=== PATIENT | female | born 1990 | race Caucasian/White ===

== ENCOUNTER 2017-10-23 21:10 | Emergency (ER) | payer OTHER ==
[2017-10-23] MEDS: ACETAMINOPHEN 325 MG TAB PO (22:30)
[2017-10-23] MEDS: METHOCARBAMOL 500 MG TAB PO (22:30)
== END 2017-10-23 23:27 | disposition home or self-care (01) ==
LOC: M ED 21:10
DX: S20.229A Contusion of unspecified back wall of thorax, initial encounter (principal); W10.9XXA Fall (on) (from) unspecified stairs and steps, initial encounter; Y92.9 Unspecified place or not applicable; Y93.9 Activity, unspecified; E11.9 Type 2 diabetes mellitus without complications; G89.29 Other chronic pain; M54.5 Low back pain; K21.9 Gastro-esophageal reflux disease without esophagitis; G43.909 Migraine, unspecified, not intractable, without status migrainosus; J45.909 Unspecified asthma, uncomplicated; Z98.84 Bariatric surgery status
CPT/HCPCS: 72110

== ENCOUNTER → 2018-04-12 | Outpatient (CLI) | payer OTHER | LOC: M RAD 17:09 | DX: M51.36 Other intervertebral disc degeneration, lumbar region (principal); M54.16 Radiculopathy, lumbar region | CPT/HCPCS: 72100 ==

== ENCOUNTER → 2018-04-12 | Outpatient (CLI) | payer OTHER | LOC: M PAIN 15:00 | DX: M96.1 Postlaminectomy syndrome, not elsewhere classified (principal); M54.16 Radiculopathy, lumbar region; G89.29 Other chronic pain; J45.909 Unspecified asthma, uncomplicated; G47.33 Obstructive sleep apnea (adult) (pediatric); G43.909 Migraine, unspecified, not intractable, without status migrainosus; M19.90 Unspecified osteoarthritis, unspecified site; G47.00 Insomnia, unspecified; K21.9 Gastro-esophageal reflux disease without esophagitis; R25.1 Tremor, unspecified; Z79.51 Long term (current) use of inhaled steroids; Z79.899 Other long term (current) drug therapy; Z88.5 Allergy status to narcotic agent; Z86.79 Personal history of other diseases of the circulatory system; Z98.84 Bariatric surgery status | CPT/HCPCS: G0463 ==

== ENCOUNTER → 2018-07-22 | Outpatient (CLI) | payer OTHER | LOC: M PAIN 13:30 | DX: M79.10 Myalgia, unspecified site (principal); M54.5 Low back pain; G89.29 Other chronic pain; J45.909 Unspecified asthma, uncomplicated; K21.9 Gastro-esophageal reflux disease without esophagitis; E53.8 Deficiency of other specified B group vitamins; Z79.899 Other long term (current) drug therapy; Z98.84 Bariatric surgery status; Z88.8 Allergy status to other drugs, medicaments and biological substances | CPT/HCPCS: G0463 ==

== ENCOUNTER → 2018-08-05 | Outpatient (CLI) | payer OTHER ==
[~2018-08-05] MED LIST: BUPIVACAINE HCL 0.25% 30 ML VIAL As Ordered; TRIAMCINOLONE ACETONIDE SUSP 40 MG/ML VIAL (J3301) As Ordered; diazePAM 5 MG TAB As Ordered; oxyCODONE 5MG TAB As Ordered
== END ==
LOC: M PAIN 11:00
DX: G89.29 Other chronic pain (principal); M79.18 Myalgia, other site; M54.6 Pain in thoracic spine; M54.5 Low back pain; J45.909 Unspecified asthma, uncomplicated; G47.33 Obstructive sleep apnea (adult) (pediatric); G43.909 Migraine, unspecified, not intractable, without status migrainosus; M81.8 Other osteoporosis without current pathological fracture; R56.9 Unspecified convulsions; K21.9 Gastro-esophageal reflux disease without esophagitis; G47.00 Insomnia, unspecified; E66.01 Morbid (severe) obesity due to excess calories; Z68.38 Body mass index [BMI] 38.0-38.9, adult; Z79.51 Long term (current) use of inhaled steroids; Z79.899 Other long term (current) drug therapy; Z88.5 Allergy status to narcotic agent; Z98.84 Bariatric surgery status; Z86.79 Personal history of other diseases of the circulatory system; Z86.2 Personal history of diseases of the blood and blood-forming organs and certain disorders involving the immune mechanism; Z86.69 Personal history of other diseases of the nervous system and sense organs
CPT/HCPCS: J3301

== ENCOUNTER → 2018-08-19 | Outpatient (CLI) | payer OTHER | LOC: M PAIN 11:30 | DX: M51.26 Other intervertebral disc displacement, lumbar region (principal); M54.17 Radiculopathy, lumbosacral region; J45.909 Unspecified asthma, uncomplicated; G47.33 Obstructive sleep apnea (adult) (pediatric); G43.909 Migraine, unspecified, not intractable, without status migrainosus; R56.9 Unspecified convulsions; K21.9 Gastro-esophageal reflux disease without esophagitis; G47.00 Insomnia, unspecified; D64.9 Anemia, unspecified; Z79.51 Long term (current) use of inhaled steroids; Z79.899 Other long term (current) drug therapy; Z88.5 Allergy status to narcotic agent; Z98.84 Bariatric surgery status | CPT/HCPCS: G0463 ==

== ENCOUNTER → 2019-01-18 | Outpatient (CLI) | payer OTHER ==
[~2019-01-18] MED LIST changes: +ALBU17IN INH; +AMIT100TA PO; +BACL10TA2 PO; +BACL1TAB9 PO; +BREO1INH INH; -BUPIVACAINE HCL 0.25% 30 ML VIAL As Ordered; +CALC600T60 PO; +DICL75TA PO; +DRIS50003 PO; +FAMO1TAB11 PO; +FERR325T3 PO; +HAIR1TAB5 PO; +HYDR50TA70 PO; +IBUP200T45 PO; +IRON65TA PO; +META400T PO; +METO25TA4 PO; +NEUR600T PO; +PRIL20CA9 PO; +QUET1TAB9 PO; +ROBA500T PO; +TIZA4CAP PO; +TRAM50TA2 PO; +TRAZ-163 PO; -TRIAMCINOLONE ACETONIDE SUSP 40 MG/ML VIAL (J3301) As Ordered; -diazePAM 5 MG TAB As Ordered; +glucosamine PO; -oxyCODONE 5MG TAB As Ordered; +vitamin b 12 SQ; +vitamin c PO
--- NOTE | 2019-01-29 00:25 | ECWPNPC ---
PATIENT NAME: LUZ MARINA PLATT : 1990 GENDER: FEMALE VISIT DATE: 01/18/2019 DISCHARGE DATE: 01/18/19 1159 VISIT LOCKED DATE TIME: PHYSICIAN: HO HARDY RESOURCE: HO HARDY REASON FOR APPOINTMENT 1. BACK HISTORY OF PRESENT ILLNESS HISTORY OF PRESENT ILLNESS: HERE FOR F/U OF CHRONIC LOW BACK PAIN.RATING PAIN VAS 8/10.DESCRIBES PAIN CONTINUOUS AND ACHING.FINDS TRAMADOL ONLY MARGINALLY EFFECTIVE.DISCUSSED MEDICATION AND TREATMENT OPTIONS. PAIN THE PATIENT DESCRIBES THE PAIN... FALL RISK SCREENING: SCREENING :NO FALLS REPORTED IN THE LAST YEAR CURRENT MEDICATIONS TAKING OMEPRAZOLE 20 MG CAPSULE DELAYED RELEASE 1 CAPSULE ORALLY ONCE A DAY TAKING OSTEO BI-FLEX REGULAR STRENGTH 250-200 MG TABLET 1 TABLET WITH A MEAL ORALLY TWICE DAILY TAKING METOPROLOL TARTRATE 25 MG TABLET 1 TABLET ORALLY DAILY TAKING ALBUTEROL SULFATE HFA 108 (90 BASE) MCG/ACT AEROSOL SOLUTION 2 PUFFS NEEDED INHALATION TAKING MULTIVITAMIN WOMEN - TABLET ORALLY TAKING VITAMIN C 500 MG TABLET 1 TABLET ORALLY ONCE A DAY TAKING HAIR SKIN NAILS - CAPSULE ORALLY TAKING CALCIUM 600 600 MG TABLET ORALLY , NOTES: TAKES 2 TAKING DRISDOL 18687 UNIT CAPSULE 1 CAPSULE ORALLY MONTHLY TAKING BREO ELLIPTA 200-25 MCG/INH AEROSOL POWDER BREATH ACTIVATED 1 PUFF INHALATION ONCE A DAY TAKING VITAMIN E 400 UNIT CAPSULE 1 CAPSULE ORALLY ONCE A DAY TAKING CYANOCOBALAMIN 1000 MCG/ML LIQUID ORALLY , NOTES: MONTHLY INJECTION TAKING FLINTSTONES COMPLETE 60 MG TABLET CHEWABLE 1 TABLET ORALLY ONCE A DAY, NOTES: 2 TABS TAKING ORPHENADRINE CITRATE ER 100 MG TABLET EXTENDED RELEASE 12 HOUR 1 TABLET AT BEDTIME ORALLY ONCE A DAY TAKING HYDROXYZINE HCL 50 MG TABLET 1 TABLET NEEDED ORALLY EVERY 6 HRS TAKING FLONASE 50 MCG/DOSE INHALER 1 SPRAY IN EACH NOSTRIL NASALLY ONCE A DAY NEEDED TAKING TRAMADOL HCL 50 MG TABLET 1-2 TAB ORALLY Q 6-8H PRN MDD6 TAKING IRON FORMULA INFUSION MONTHLY NOT-TAKING DULOXETINE HCL 30 MG CAPSULE DELAYED RELEASE PARTICLES 1 CAPSULE WITH FOOD ORALLY FOR PAIN ONCE A DAY NOT-TAKING FERROUS SULFATE 325 (65 FE) MG TABLET 1 TABLET ORALLY ONCE A DAY NOT-TAKING IRON 100 PLUS 100-250-0.025-1 MG TABLET 1 TABLET ORALLY ONCE A DAY MEDICATION LIST REVIEWED AND RECONCILED WITH THE PATIENT PAST MEDICAL HISTORY ASTHMA SAUL WITH CPAP CHRONIC MIGRAINES OSTEOPOROSIS IN R LEG HERNIATED DISC WITH NERVE ROOT IMPINGEMENT SPINAL STENOSIS SEIZURE X 3 06/2016 GERD SYNCOPE AND COLLAPSE INSOMNIA OBESITY ANEMIA TACHYCARDIA ITAMIN B12 DEFICIENCY CHRONIC PAIN BENIGN FATTY TUMORS IN LOWER LEGS LUMBAR DISC DISEASE WITH RADICULOPATHY TREMOR ALLERGIES OXYCODONE ER: ITCH - SIDE EFFECTS VICODIN: ITCH - SIDE EFFECTS SURGICAL HISTORY GALL BLADDER REMOVED DISC REMOVAL X 2 08/29/2016 GASTRIC BYPASS 03/2016 TUMOR REMOVED R LEG 11/2016 D & C 2017 FAMILY HISTORY FATHER: 31 YRS MOTHER: ALIVE 48 YRS, DIAGNOSED WITH CANCER 1 BROTHER(S) , 1 SISTER(S) . SOCIAL HISTORY GENERAL: TOBACCO USE ARE YOU A:NONSMOKER ALCOHOL SCREENING DID YOU HAVE A DRINK CONTAINING ALCOHOL IN THE PAST YEAR? YES , POINTS 0 , INTERPRETATION NEGATIVE . RECREATIONAL DRUG USE: NEVER DENIES. 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 EXERCISE: WALKS. MARITAL STATUS: SINGLE. OTHERS AT HOME: OTHER RELATIVE. PAIN CLINIC PFS, CLERGY, PUBLIC HEALTH REFERRALS HAS THE PATIENT BEEN EDUCATED REGARDING HIS/HER PLAN OF CARE?YES HAS THE PATIENT BEEN EDUCATED REGARDING PAIN, THE RISK FOR PAIN, THE IMPORTANCE OF EFFECTIVE PAIN MANAGEMENT, AND THE PAIN ASSESSMENT PROCESS?YES ADVANCE DIRECTIVE ADVANCE DIRECTIVE DISCUSSED WITH PATIENT:YES HCP MOTHER DOMINICK PLATT [phone] REVIEWED 04/12/18 1600 LASREVIEWED WITH PT 08/19/18 1208 BV. HOSPITALIZATION/MAJOR DIAGNOSTIC PROCEDURE SEIZURES 2016 SURGICAL ADMISSIONS REVIEW OF SYSTEMS REVIEWED BY: PROVIDER: HO PRUETT . CONSTITUTIONAL: ANY CHANGE IN YOUR MEDICAL CONDITION? NO . CHILLS NO . FEVER NO . INFECTION: DO YOU HAVE NEW INFECTIONS? NO . DO YOU HAVE HISTORY OF MRSA? NO . MUSCULOSKELETAL: ANY NEW PATTERNS OF PAIN OR NUMBNESS? NO . GASTROENTEROLOGY: ANY NEW CHANGE IN BOWEL CONTROL? NO . GENITOURINARY: ANY NEW CHANGE IN BLADDER CONTROL? NO . IS THERE A CHANCE YOU COULD BE ? NO . HEMATOLOGY/LYMPH: DO YOU TAKE ANY BLOOD THINNERS? (FOR EXAMPLE- COUMADIN, PLAVIX, AGGRENOX, PLATEL, PRADAXA, OR XARELTO) NO . WHEN WAS YOUR LAST DOSE? DATE: TIME: . NEUROLOGY: HAVE YOU FALLEN IN THE PAST 12 MONTHS? YES, FELL 2 WEEKS AGO FROM PAIN WEAKNESS AND LOSS OF BALANCE, PT DENIES INJURIES . ANY NEW EXTREMITY NUMBNESS OR WEAKNESS? NO . CARDIOLOGY: DO YOU HAVE A PACEMAKER OR DEFIBRILLATOR? NO . RESPIRATORY: HAVE YOU BEEN SICK IN THE PAST WEEK? YES, URI RESOLVING . FEVER NO, COLD CHILLS . FLU LIKE SYMPTOMS? NO . COUGH YES, PRODUCTIVE GREEN MUCOUS RESOLVING . INTEGUMENTARY: DO YOU HAVE ANY RASHES OR OPEN SORES? NO . ALLERGIC/IMMUNO: ARE YOU ALLERGIC TO IV DYE? NO . ANY NEW ALLERGIES? NO . PSYCHIATRIC: DO YOU HAVE THOUGHTS OF HURTING YOURSELF OR SOMEONE ELSE? NO . ARE YOU ABUSED, NEGLECTED, OR IN AN UNSAFE ENVIRONMENT? NO . ENDOCRINOLOGY: ARE YOU DIABETIC? NO . OTHER: DO YOU NEED ANY PRESCRIPTIONS? YES, TRAMADOL . IF YES, PLEASE LIST: ____ . ANY NEW PROBLEMS WITH YOUR MEDICATIONS? NO . WHEN DID YOU LAST EAT? ____ . WHEN DID YOU LAST DRINK? ____ . WHAT DID YOU LAST DRINK? ____ . NAME OF PERSON DRIVING YOU HOME? ____ . DO YOU HAVE ANY OTHER QUESTIONS OR CONCERNS NO . VITAL SIGNS WT 242 LBS, HT 65", BMI 40.27 INDEX, BP 112/67 MM HG, HR 65 /MIN, RR 16 /MIN, TEMP 97.0 F, OXYGEN SAT % 100%, NA INITIALS AW 1129, REVIEWED BY: EM. EXAMINATION GENERAL EXAMINATION: GENERAL APPEARANCE:AWAKE,ALERT ,PLEAASANT . PSYCHAFFECT NORMAL . LUNGS:LUNG ROMERO ARE CLEAR TO AUSCULTATION BILATERALLY. GOOD MOVEMENT OF AIR . HEART:S1, S2 IN A REGULAR RATE AND RHYTHM. NO SIGNIFICANT MURMURS, RUBS OR GALLOPS NOTED . ASSESSMENTS PROTRUDED LUMBAR DISC - M51.26 (PRIMARY) TREATMENT PROTRUDED LUMBAR DISC INCREASE TRAMADOL HCL TABLET, 50 MG, 1-2 TAB, ORALLY, Q6 HR PRN MDD5, 30 DAY(S), 100, REFILLS 2 NOTES: ISTOP REGISTRY REVIEWED AND DEMONSTRATES COMPLLIANCE. , RISKS AND BENEFITS OF NARCOTIC/OPIOD MEDICATIONS WERE REVIEWED WITH PATIENT - THIS INCLUDES BUT IS NOT LIMITED TO RISK OF DEPENDANCE/DEVELOPMENT OF ADDICTION, MOOD DISTURBANCE AND DEPRESSION, OSTEOPOROSIS, HORMONAL AND LABIDAL CHANGES, RESPIRATORY DEPRESSION AND . PATIENT IS ADVISED NOT TO DRIVE OR DRINK ALCOHOL WHILE ON THESE MEDICATIONS. PROCEDURE CODES FA211 ESTABILISHED PATIENT [facility] CHARGE DISPOSITION & COMMUNICATION FOLLOW UP 2 MONTHS ELECTRONICALLY SIGNED BY SEBLE CHENEY ON 01/28/2019 AT 04:31 PM EDT DISCLAIMER : THIS IS A VISIT SUMMARY EXTRACTED FROM THE [email or web address] CHART. IT IS NOT A COPY OF THE [email or web address] PROGRESS NOTE. CAROLANN
== END ==
LOC: M PAIN 11:15
PROVIDERS: ATTEND Nurse Practitioner Family
DX: M51.26 Other intervertebral disc displacement, lumbar region (principal); G89.29 Other chronic pain; J44.9 Chronic obstructive pulmonary disease, unspecified; G47.33 Obstructive sleep apnea (adult) (pediatric); G43.909 Migraine, unspecified, not intractable, without status migrainosus; R56.9 Unspecified convulsions; K21.9 Gastro-esophageal reflux disease without esophagitis; D64.9 Anemia, unspecified; E66.01 Morbid (severe) obesity due to excess calories; Z68.41 Body mass index [BMI] 40.0-44.9, adult; Z79.51 Long term (current) use of inhaled steroids; Z79.891 Long term (current) use of opiate analgesic; Z79.899 Other long term (current) drug therapy; Z88.5 Allergy status to narcotic agent; Z98.84 Bariatric surgery status; Z86.79 Personal history of other diseases of the circulatory system; Z86.69 Personal history of other diseases of the nervous system and sense organs

== ENCOUNTER → 2019-06-22 | Outpatient (CLI) | payer OTHER ==
[~2019-06-22] MED LIST changes: -QUET1TAB9 PO; +QUET200T2 PO
--- NOTE | 2019-06-23 02:52 | ECWPNPC ---
PATIENT NAME: LUZ MARINA PLATT : 1990 GENDER: FEMALE VISIT DATE: 06/22/2019 DISCHARGE DATE: 06/22/19 1131 VISIT LOCKED DATE TIME: PHYSICIAN: HO HARDY RESOURCE: HO HARDY REASON FOR APPOINTMENT 1. BACK HISTORY OF PRESENT ILLNESS HISTORY OF PRESENT ILLNESS: HERE FOR F/U OF CHRONIC LOW BACK PAIN WITH BILAT. LEG RADICULAR SYMPTOMS.RATING PAIN VAS 6- 8/10.DESCRIBES PAIN CONTINUOUS AND ACHING. HAS PLANS FOR LUMBAR SURGERY IN NEAR FUTURE.HAS HAD LUMBAR SURGERY IN 2016.FINDS TRAMADOL ONLY MARGINALLY EFFECTIVE. DENIES LOSS OF CONTROL OF BOWEL OR BLADDER.DISCUSSED MEDICATION AND TREATMENT OPTIONS. PAIN THE PATIENT DESCRIBES THE PAIN... THE PATIENT DESCRIBES THE PAIN... FALL RISK SCREENING: SCREENING :NO FALLS REPORTED IN THE LAST YEAR CURRENT MEDICATIONS TAKING OMEPRAZOLE 20 MG CAPSULE DELAYED RELEASE 1 CAPSULE ORALLY ONCE A DAY TAKING OSTEO BI-FLEX REGULAR STRENGTH 250-200 MG TABLET 1 TABLET WITH A MEAL ORALLY TWICE DAILY TAKING METOPROLOL TARTRATE 25 MG TABLET 1 TABLET ORALLY DAILY TAKING ALBUTEROL SULFATE HFA 108 (90 BASE) MCG/ACT AEROSOL SOLUTION 2 PUFFS NEEDED INHALATION TAKING MULTIVITAMIN WOMEN - TABLET ORALLY TAKING VITAMIN C 500 MG TABLET 1 TABLET ORALLY ONCE A DAY TAKING HAIR SKIN NAILS - CAPSULE ORALLY TAKING CALCIUM 600 600 MG TABLET ORALLY , NOTES: TAKES 2 TAKING DRISDOL 66614 UNIT CAPSULE 1 CAPSULE ORALLY MONTHLY TAKING BREO ELLIPTA 200-25 MCG/INH AEROSOL POWDER BREATH ACTIVATED 1 PUFF INHALATION ONCE A DAY TAKING VITAMIN E 400 UNIT CAPSULE 1 CAPSULE ORALLY ONCE A DAY TAKING CYANOCOBALAMIN 1000 MCG/ML LIQUID ORALLY , NOTES: MONTHLY INJECTION TAKING FLINTSTONES COMPLETE 60 MG TABLET CHEWABLE 1 TABLET ORALLY ONCE A DAY, NOTES: 2 TABS TAKING ORPHENADRINE CITRATE ER 100 MG TABLET EXTENDED RELEASE 12 HOUR 1 TABLET AT BEDTIME ORALLY ONCE A DAY TAKING HYDROXYZINE HCL 50 MG TABLET 1 TABLET NEEDED ORALLY EVERY 6 HRS TAKING FLONASE 50 MCG/DOSE INHALER 1 SPRAY IN EACH NOSTRIL NASALLY ONCE A DAY NEEDED TAKING IRON FORMULA INFUSION MONTHLY TAKING TRAMADOL HCL 50 MG TABLET 1-2 TAB ORALLY Q6 HR PRN MDD5 TAKING CYCLOBENZAPRINE HCL ER 15 MG CAPSULE EXTENDED RELEASE 24 HOUR 1 CAPSULE NEEDED ORALLY ONCE A DAY NOT-TAKING DULOXETINE HCL 30 MG CAPSULE DELAYED RELEASE PARTICLES 1 CAPSULE WITH FOOD ORALLY FOR PAIN ONCE A DAY NOT-TAKING FERROUS SULFATE 325 (65 FE) MG TABLET 1 TABLET ORALLY ONCE A DAY NOT-TAKING IRON 100 PLUS 100-250-0.025-1 MG TABLET 1 TABLET ORALLY ONCE A DAY MEDICATION LIST REVIEWED AND RECONCILED WITH THE PATIENT PAST MEDICAL HISTORY ASTHMA SAUL WITH CPAP CHRONIC MIGRAINES OSTEOPOROSIS IN R LEG HERNIATED DISC WITH NERVE ROOT IMPINGEMENT SPINAL STENOSIS SEIZURE X 3 06/2016 GERD SYNCOPE AND COLLAPSE INSOMNIA OBESITY ANEMIA TACHYCARDIA ITAMIN B12 DEFICIENCY CHRONIC PAIN BENIGN FATTY TUMORS IN LOWER LEGS LUMBAR DISC DISEASE WITH RADICULOPATHY TREMOR ALLERGIES OXYCODONE ER: ITCH - SIDE EFFECTS VICODIN: ITCH - SIDE EFFECTS SURGICAL HISTORY GALL BLADDER REMOVED DISC REMOVAL X 2 08/29/2016 GASTRIC BYPASS 03/2016 TUMOR REMOVED R LEG 11/2016 D & C 2017 FAMILY HISTORY FATHER: 31 YRS MOTHER: ALIVE 48 YRS, DIAGNOSED WITH CANCER 1 BROTHER(S) , 1 SISTER(S) . SOCIAL HISTORY GENERAL: TOBACCO USE ARE YOU A:NONSMOKER HIV / HEP-C SCREENING HIV TEST OFFERED TO PATIENT:YES DATE OFFERED:04/25/2018 TEST ACCEPTED:NO REASON:PATIENT DECLINED BROCHURE PROVIDED TO PATIENTNO HEP-C TEST OFFERED TO PATIENT:NO OTHERS AT HOME: OTHER RELATIVE. DIET: GASTRIC BYPASS 2015. LANGUAGE LANGUAGES SPOKEN:KENYAN DOMESTIC VIOLENCE DO YOU FEEL SAFE IN YOUR ENVIRONMENT?YES RECREATIONAL DRUG USE: NEVER DENIES. EXERCISE: WALKS. LEARNING BARRIERS / SPECIAL NEEDS BARRIERS TO LEARNING?NO HEARING IMPAIRED?NO VISION IMPAIRED?NO WEARS GLASSES COGNITIVELY IMPAIRED?NO READINESS TO LEARN?YES LEARNING PREFERENCES?NO LEARNING CAPABILITIES PRESENT?YES EMOTIONAL BARRIERS?NO SPECIAL DEVICES?NO BRAND COORDINATOR NEEDED?NO PAIN CLINIC PFS, CLERGY, PUBLIC HEALTH REFERRALS HAS THE PATIENT BEEN EDUCATED REGARDING HIS/HER PLAN OF CARE?YES HAS THE PATIENT BEEN EDUCATED REGARDING PAIN, THE RISK FOR PAIN, THE IMPORTANCE OF EFFECTIVE PAIN MANAGEMENT, AND THE PAIN ASSESSMENT PROCESS?YES CAFFEINE: YES CAFFEINE USE?NO ADVANCE DIRECTIVE ADVANCE DIRECTIVE DISCUSSED WITH PATIENT:YES HCP MOTHER DOMINICK PLATT [phone] MARITAL STATUS: SINGLE. ALCOHOL SCREENING DID YOU HAVE A DRINK CONTAINING ALCOHOL IN THE PAST YEAR? YES , POINTS 0 , INTERPRETATION NEGATIVE. REVIEWED 04/12/18 1600 LASREVIEWED WITH PT 08/19/18 1208 BVREVIEWED WITH PT 06/22/19 1050 BV. HOSPITALIZATION/MAJOR DIAGNOSTIC PROCEDURE SEIZURES 2016 SURGICAL ADMISSIONS REVIEW OF SYSTEMS REVIEWED BY: PROVIDER: HO PRUETT . CONSTITUTIONAL: ANY CHANGE IN YOUR MEDICAL CONDITION? NO . CHILLS NO . FEVER NO . INFECTION: DO YOU HAVE NEW INFECTIONS? NO . DO YOU HAVE HISTORY OF MRSA? NO . MUSCULOSKELETAL: ANY NEW PATTERNS OF PAIN OR NUMBNESS? YES, PT STATES IN THE PAST 1-2 MONTHS, HAS HAD INCREASING OCCURANCE OF BILATERAL LEGS "GIVING OUT" ON HER. . GASTROENTEROLOGY: ANY NEW CHANGE IN BOWEL CONTROL? NO . GENITOURINARY: ANY NEW CHANGE IN BLADDER CONTROL? NO . IS THERE A CHANCE YOU COULD BE ? NO . HEMATOLOGY/LYMPH: DO YOU TAKE ANY BLOOD THINNERS? (FOR EXAMPLE- COUMADIN, PLAVIX, AGGRENOX, PLATEL, PRADAXA, OR XARELTO) NO . WHEN WAS YOUR LAST DOSE? DATE: TIME: . NEUROLOGY: HAVE YOU FALLEN IN THE PAST 12 MONTHS? YES, PT STATES SHE HAS HAD 3 FALLS AND 1 NEAR FALL IN THE PAST COUPLE MONTHS DUE TO LEGS GIVING OUT ON HER. DENIES ANY INJURIES OR ED VISIT . ANY NEW EXTREMITY NUMBNESS OR WEAKNESS? NO . CARDIOLOGY: DO YOU HAVE A PACEMAKER OR DEFIBRILLATOR? NO . RESPIRATORY: HAVE YOU BEEN SICK IN THE PAST WEEK? NO . FEVER NO . FLU LIKE SYMPTOMS? NO . COUGH NO . INTEGUMENTARY: DO YOU HAVE ANY RASHES OR OPEN SORES? NO . ALLERGIC/IMMUNO: ARE YOU ALLERGIC TO IV DYE? NO . ANY NEW ALLERGIES? NO . PSYCHIATRIC: DO YOU HAVE THOUGHTS OF HURTING YOURSELF OR SOMEONE ELSE? NO . ARE YOU ABUSED, NEGLECTED, OR IN AN UNSAFE ENVIRONMENT? NO . ENDOCRINOLOGY: ARE YOU DIABETIC? NO . OTHER: DO YOU NEED ANY PRESCRIPTIONS? NO . IF YES, PLEASE LIST: ____ . ANY NEW PROBLEMS WITH YOUR MEDICATIONS? NO . WHEN DID YOU LAST EAT? ____ . WHEN DID YOU LAST DRINK? ____ . WHAT DID YOU LAST DRINK? ____ . NAME OF PERSON DRIVING YOU HOME? ____ . DO YOU HAVE ANY OTHER QUESTIONS OR CONCERNS NO . VITAL SIGNS WT 235.6 LBS, HT 65", BMI 39.20 INDEX, BP 119/78 MM HG, HR 71 /MIN, RR 16 /MIN, TEMP 96.8 F, OXYGEN SAT % 100%, NA INITIALS SC 10:52, REVIEWED BY: BV. EXAMINATION GENERAL EXAMINATION: GENERALALERT,PLEASANT,NO DISTRESS. PSYCHAFFECT NORMAL. LUNGS:LUNG SOUNDS ARE CLEAR. HEART:HEART RATE REGULAR. MUSCULOSKELETAL:SLIGHTLY WEAK OVER RIGHT LEG COMPARED WITH LEFT. LUMBAR SACRAL SPINEWELL HEALED SURGICAL SCAR OVER L/S AXIS.HYPERSENSITIVE TO LIGHT TOUCH L/S SPINE AND PARASPINALS BILAT.. NEUROLOGIC EXAM:MARKED DECREASED SENSATION TO LIGHT TOUCH RIGHT LEG.DECREASED SENSATION TO LIGHT TOUCH LEFT THIGH. ASSESSMENTS LUMBAR POST-LAMINECTOMY SYNDROME - M96.1 (PRIMARY) TREATMENT LUMBAR POST-LAMINECTOMY SYNDROME NOTES: CAUDAL EPIDURAL. PREVENTIVE MEDICINE PAIN CLINIC TEACHING: PROCEDURE TEACHING PT GIVEN WRITTEN AND VERBAL EDUCATION ON CAUDAL INJECTION. PT ALSO GIVEN WRITTEN AND VERBAL PRE-PROCEDURE INSTRUCTIONS. PT VERBALIZES UNDERSTANDING OF ALL EDUCATION AND INSTRUCTIONS. WILEY POLLARD 06/22/2019 11:27:23 AM > . PROCEDURE CODES FA211 ESTABILISHED PATIENT [facility] FACILITY CHARGE DISPOSITION & COMMUNICATION FOLLOW UP POST W MAGY (REASON: CAUDAL EPIDURAL/SIGN RECORDS RELEASE-[facility] SURGERY) ELECTRONICALLY SIGNED BY SEBLE CHENEY ON 06/22/2019 AT 12:56 PM EDT DISCLAIMER : THIS IS A VISIT SUMMARY EXTRACTED FROM THE [employer] CHART. IT IS NOT A COPY OF THE [employer] PROGRESS NOTE. CAROLANN
== END ==
LOC: M PAIN 10:30
PROVIDERS: ATTEND Nurse Practitioner Family
DX: M96.1 Postlaminectomy syndrome, not elsewhere classified (principal); J45.909 Unspecified asthma, uncomplicated; G47.33 Obstructive sleep apnea (adult) (pediatric); G43.909 Migraine, unspecified, not intractable, without status migrainosus; K21.9 Gastro-esophageal reflux disease without esophagitis; G47.00 Insomnia, unspecified; D50.9 Iron deficiency anemia, unspecified; R25.1 Tremor, unspecified; Z98.84 Bariatric surgery status; Z88.5 Allergy status to narcotic agent; Z91.81 History of falling; Z79.51 Long term (current) use of inhaled steroids; Z79.891 Long term (current) use of opiate analgesic; Z79.899 Other long term (current) drug therapy

== ENCOUNTER → 2019-07-27 | Outpatient (CLI) | payer OTHER ==
[~2019-07-27] MED LIST changes: +ISOVUE-M 300 61% 15ML VIAL (Q9967) As Ordered ONE; +LIDOCAINE 1% SDV INJ 30 ML VIAL As Ordered ONE; +diazePAM 5 MG TAB As Ordered ONE; +diphenhydrAMINE 25 MG CAP As Ordered ONE; +methylPREDNISolone SUSP 40 MG/ML (DEPO-medrol) VIAL (J1030) As Ordered ONE; +oxyCODONE 5MG TAB As Ordered ONE
--- NOTE | 2019-07-27 16:03 | REP ---
C-ARM VIEWS LUMBAR SPINE: CLINICAL HISTORY: Pain. Three C-ARM views of the lumbar spine are performed during epidural injection by Dr. Pickens. Needle is seen at the L4-5 level and a small amount of contrast is injected. 17 seconds of fluoroscopy time is utilized. Electronically Signed by Paresh Nugent MD 07/27/2019 06:43 P
--- NOTE | 2019-08-10 01:18 | ECWPNPC ---
PATIENT NAME: LUZ MARINA PLATT : 1990 GENDER: FEMALE VISIT DATE: 07/27/2019 DISCHARGE DATE: 07/27/19 1522 VISIT LOCKED DATE TIME: PHYSICIAN: LEOPOLDO SR MD RESOURCE: LEOPOLDO SR MD REASON FOR APPOINTMENT 1. L4-L5 LUMBAR EPIDURAL HISTORY OF PRESENT ILLNESS HISTORY OF PRESENT ILLNESS: PAIN THE PATIENT DESCRIBES THE PAIN... FALL RISK SCREENING: SCREENING :NO FALLS REPORTED IN THE LAST YEAR CURRENT MEDICATIONS TAKING DULOXETINE HCL 30 MG CAPSULE DELAYED RELEASE PARTICLES 1 CAPSULE WITH FOOD ORALLY FOR PAIN ONCE A DAY, NOTES: 07-26-192199 TAKING FERROUS SULFATE 325 (65 FE) MG TABLET 1 TABLET ORALLY ONCE A DAY, NOTES: 07-26-191599 TAKING IRON 100 PLUS 100-250-0.025-1 MG TABLET 1 TABLET ORALLY ONCE A DAY, NOTES: 07-26-191599 TAKING OMEPRAZOLE 20 MG CAPSULE DELAYED RELEASE 1 CAPSULE ORALLY ONCE A DAY, NOTES: 07-26-19799 TAKING OSTEO BI-FLEX REGULAR STRENGTH 250-200 MG TABLET 1 TABLET WITH A MEAL ORALLY TWICE DAILY, NOTES: 07-26-191899 TAKING METOPROLOL TARTRATE 25 MG TABLET 1 TABLET ORALLY DAILY, NOTES: 07-26-19799 TAKING ALBUTEROL SULFATE HFA 108 (90 BASE) MCG/ACT AEROSOL SOLUTION 2 PUFFS NEEDED INHALATION , NOTES: 07-26-191699 TAKING MULTIVITAMIN WOMEN - TABLET ORALLY DAILY, NOTES: 07-26-19799 TAKING VITAMIN C 500 MG TABLET 1 TABLET ORALLY ONCE A DAY, NOTES: 07-26-19799 TAKING HAIR SKIN NAILS - CAPSULE ORALLY DAILY, NOTES: 07-26-19799 TAKING CALCIUM 600 600 MG TABLET 2 TABLETS ORALLY DAILY, NOTES: 07-26-19799 TAKING DRISDOL 08559 UNIT CAPSULE 1 CAPSULE ORALLY MONTHLY, NOTES: TAKING BREO ELLIPTA 200-25 MCG/INH AEROSOL POWDER BREATH ACTIVATED 1 PUFF INHALATION ONCE A DAY, NOTES: 07-27-19599 TAKING VITAMIN E 400 UNIT CAPSULE 1 CAPSULE ORALLY ONCE A DAY, NOTES: 07-26-19799 TAKING CYANOCOBALAMIN 1000 MCG/ML LIQUID INJECTION MONTHLY, NOTES: TAKING FLINTSTONES COMPLETE 60 MG TABLET CHEWABLE 2 TABLETS ORALLY ONCE A DAY, NOTES: 10-8-19 0800 TAKING ORPHENADRINE CITRATE ER 100 MG TABLET EXTENDED RELEASE 12 HOUR 1 TABLET AT BEDTIME ORALLY ONCE A DAY, NOTES: 07-26-192199 TAKING HYDROXYZINE HCL 50 MG TABLET 1 TABLET NEEDED ORALLY EVERY 6 HRS, NOTES: 07-26-192199 TAKING FLONASE 50 MCG/DOSE INHALER 1 SPRAY IN EACH NOSTRIL NASALLY ONCE A DAY NEEDED, NOTES: NONE RECENTLY TAKING IRON FORMULA INFUSION MONTHLY, NOTES: MAY 2019 TAKING TRAMADOL HCL 50 MG TABLET 1-2 TAB ORALLY Q6 HR PRN MDD5, NOTES: 07-26-192199 TAKING CYCLOBENZAPRINE HCL ER 15 MG CAPSULE EXTENDED RELEASE 24 HOUR 1 CAPSULE NEEDED ORALLY ONCE A DAY, NOTES: 07-26-191799 MEDICATION LIST REVIEWED AND RECONCILED WITH THE PATIENT PAST MEDICAL HISTORY ASTHMA SAUL WITH CPAP CHRONIC MIGRAINES OSTEOPOROSIS IN R LEG HERNIATED DISC WITH NERVE ROOT IMPINGEMENT SPINAL STENOSIS SEIZURE X 3 06/2016 GERD SYNCOPE AND COLLAPSE INSOMNIA OBESITY ANEMIA TACHYCARDIA ITAMIN B12 DEFICIENCY CHRONIC PAIN BENIGN FATTY TUMORS IN LOWER LEGS LUMBAR DISC DISEASE WITH RADICULOPATHY TREMOR ALLERGIES OXYCODONE ER: ITCH - SIDE EFFECTS VICODIN: ITCH - SIDE EFFECTS SURGICAL HISTORY GALL BLADDER REMOVED DISC REMOVAL X 2 08/29/2016 GASTRIC BYPASS 03/2016 TUMOR REMOVED R LEG 11/2016 D & C 2017 FAMILY HISTORY FATHER: 31 YRS MOTHER: ALIVE 48 YRS, DIAGNOSED WITH OTHER MALIGNANT NEOPLASM OF UNSPECIFIED SITE 1 BROTHER(S) , 1 SISTER(S) . SOCIAL HISTORY GENERAL: TOBACCO USE ARE YOU A:NONSMOKER HIV / HEP-C SCREENING HIV TEST OFFERED TO PATIENT:YES DATE OFFERED:04/25/2018 TEST ACCEPTED:NO HEP-C TEST OFFERED TO PATIENT:NO REASON:PATIENT DECLINED BROCHURE PROVIDED TO PATIENTNO OTHERS AT HOME: OTHER RELATIVE. DIET: GASTRIC BYPASS 2015. LANGUAGE LANGUAGES SPOKEN:JAPANESE DOMESTIC VIOLENCE DO YOU FEEL SAFE IN YOUR ENVIRONMENT?YES RECREATIONAL DRUG USE: NEVER DENIES. EXERCISE: WALKS. LEARNING BARRIERS / SPECIAL NEEDS BARRIERS TO LEARNING?NO HEARING IMPAIRED?NO VISION IMPAIRED?NO WEARS GLASSES COGNITIVELY IMPAIRED?NO READINESS TO LEARN?YES LEARNING PREFERENCES?NO LEARNING CAPABILITIES PRESENT?YES EMOTIONAL BARRIERS?NO SPECIAL DEVICES?NO ALUMINUM POLISHER NEEDED?NO PAIN CLINIC PFS, CLERGY, PUBLIC HEALTH REFERRALS HAS THE PATIENT BEEN EDUCATED REGARDING HIS/HER PLAN OF CARE?YES HAS THE PATIENT BEEN EDUCATED REGARDING PAIN, THE RISK FOR PAIN, THE IMPORTANCE OF EFFECTIVE PAIN MANAGEMENT, AND THE PAIN ASSESSMENT PROCESS?YES CAFFEINE: YES CAFFEINE USE?NO ADVANCE DIRECTIVE ADVANCE DIRECTIVE DISCUSSED WITH PATIENT:YES HCP MOTHER DOMINICK PLATT [phone] MARITAL STATUS: SINGLE. ALCOHOL SCREENING DID YOU HAVE A DRINK CONTAINING ALCOHOL IN THE PAST YEAR? YES , POINTS 0 , INTERPRETATION NEGATIVE. REVIEWED 04/12/18 1600 LASREVIEWED WITH PT 08/19/18 1208 BVREVIEWED WITH PT 06/22/19 1050 BV. HOSPITALIZATION/MAJOR DIAGNOSTIC PROCEDURE SEIZURES 2016 SURGICAL ADMISSIONS REVIEW OF SYSTEMS REVIEWED BY: PROVIDER: . CONSTITUTIONAL: ANY CHANGE IN YOUR MEDICAL CONDITION? NO . CHILLS NO . FEVER NO . INFECTION: DO YOU HAVE NEW INFECTIONS? NO . DO YOU HAVE HISTORY OF MRSA? NO . MUSCULOSKELETAL: ANY NEW PATTERNS OF PAIN OR NUMBNESS? NO . GASTROENTEROLOGY: ANY NEW CHANGE IN BOWEL CONTROL? NO . GENITOURINARY: ANY NEW CHANGE IN BLADDER CONTROL? NO . IS THERE A CHANCE YOU COULD BE ? NO . HEMATOLOGY/LYMPH: DO YOU TAKE ANY BLOOD THINNERS? (FOR EXAMPLE- COUMADIN, PLAVIX, AGGRENOX, PLATEL, PRADAXA, OR XARELTO) NO . WHEN WAS YOUR LAST DOSE? DATE: TIME: . NEUROLOGY: HAVE YOU FALLEN IN THE PAST 12 MONTHS? YES . ANY NEW EXTREMITY NUMBNESS OR WEAKNESS? NO . CARDIOLOGY: DO YOU HAVE A PACEMAKER OR DEFIBRILLATOR? NO . RESPIRATORY: HAVE YOU BEEN SICK IN THE PAST WEEK? NO . FEVER NO . FLU LIKE SYMPTOMS? NO . COUGH NO . INTEGUMENTARY: DO YOU HAVE ANY RASHES OR OPEN SORES? NO . ALLERGIC/IMMUNO: ARE YOU ALLERGIC TO IV DYE? NO . ANY NEW ALLERGIES? NO . PSYCHIATRIC: DO YOU HAVE THOUGHTS OF HURTING YOURSELF OR SOMEONE ELSE? NO . ARE YOU ABUSED, NEGLECTED, OR IN AN UNSAFE ENVIRONMENT? NO . ENDOCRINOLOGY: ARE YOU DIABETIC? NO . OTHER: DO YOU NEED ANY PRESCRIPTIONS? NO . IF YES, PLEASE LIST: ____ . ANY NEW PROBLEMS WITH YOUR MEDICATIONS? NO . WHEN DID YOU LAST EAT? ____1015 LAST NIGHT 07-26-19 . WHEN DID YOU LAST DRINK? ____07-27-19 . WHAT DID YOU LAST DRINK? ____WATER . NAME OF PERSON DRIVING YOU HOME? ____[place] . DO YOU HAVE ANY OTHER QUESTIONS OR CONCERNS NO . VITAL SIGNS WT 231.6 LBS, HT 65", BMI 38.54 INDEX, BP 109/72 MM HG, HR 65 /MIN, RR 16 /MIN, TEMP 97.5 F, OXYGEN SAT % 99%, NA INITIALS SC 10:46, REVIEWED BY: EM. ASSESSMENTS INTERVERTEBRAL DISC DISORDERS WITH RADICULOPATHY, LUMBAR REGION - M51.16 (PRIMARY) LUMBAR POST-LAMINECTOMY SYNDROME - M96.1 TREATMENT LUMBAR POST-LAMINECTOMY SYNDROME [facility] FLUORO GUIDE SPINE INJECTION (PAIN)[id number] PROCEDURES PRE PROCEDURE DIAGNOSIS LUMBAR POST LAMINECTOMY PAIN SYNDROME, LUMBAR DISC DISORDER WITH RADICULOPATHY POST PROCEDURE DIAGNOSIS LUMBAR POST LAMINECTOMY PAIN SYNDROME, LUMBAR DISC DISORDER WITH RADICULOPATHY PROCEDURE LUMBAR EPIDURAL STEROID INJECTION UNDER FLUOROSCOPIC GUIDANCE SURGEON DR. LEOPOLDO SR JAVA DEVELOPMENT TEAM LEAD NONE ANESTHESIA LOCAL PRE PROCEDURE NOTE THE PATIENT HAS A HISTORY OF CHRONIC LOW BACK PAIN. I EVALUATED THE PATIENT AND REVIEWED THE CHART. I WENT OVER THE RISKS, ALTERNATIVES, AND BENEFITS ASSOCIATED WITH THIS PROCEDURE. THE PATIENT WOULD LIKE TO PROCEED AND GIVES CONSENT TO PERFORM THE PROCEDURE. THE PATIENT DENIES UNEXPLAINABLE WEIGHT LOSS, FEVER, CHILLS, OR NEW CHANGES IN URINARY OR BOWEL CONTROL. DESCRIPTION OF PROCEDURE THE PATIENT WAS BROUGHT TO THE PROCEDURE ROOM AND PLACED IN THE PRONE POSITION. THE LUMBOSACRAL AREA WAS CLEANED WITH BETADINE SOLUTION AND DRAPED ASEPTICALLY. THE PROCEDURE WAS DONE UNDER STERILE CONDITIONS. I CHECKED LATERALITY AND THE LEVEL WHERE THE PROCEDURE WAS GOING TO BE PERFORMED WITH THE PATIENT AND THE SUPPORTING STAFF AT THE MOMENT OF THE TIME OUT IN THE PROCEDURE ROOM. UNDER FLUOROSCOPIC GUIDANCE, THE TARGET POINT WAS SELECTED AT THE INTERLAMINAR LEVEL OF L4-L5. LIDOCAINE WAS USED TO NUMB THE SKIN AND THE SUBCUTANEOUS TISSUE BELOW IT. EPIDURAL TUOHY NEEDLE, 17-GAUGE, WAS ADVANCED UNDER FLUOROSCOPIC GUIDANCE AND FOLLOWING PATIENT FEEDBACK UNTIL THE EPIDURAL SPACE WAS REACHED, 7 CM DEEP INTO THE SKIN BY THE LOSS OF RESISTANCE TECHNIQUE. ISOVUE M DYE 30%, 0.25 ML, WAS INJECTED SHOWING ADEQUATE SPREAD OF THE DYE. THEN, A SOLUTION OF 3 ML OF NORMAL SALINE WITH DEPO-MEDROL 60 MG WAS INJECTED SLOWLY FOLLOWING PATIENT FEEDBACK. THERE WAS NO EVIDENCE OF BLOOD, PARESTHESIA OR CEREBROSPINAL FLUID DURING THE PROCEDURE. THE PATIENT WAS SENT TO THE RECOVERY ROOM. THE PATIENT WAS MOVING THE EXTREMITIES AND DOING WELL. THERE WAS NO COMPLICATION DURING THE PROCEDURE. FLUOROSCOPY TIME WAS 17 SECONDS. POST PROCEDURE NOTE THE PATIENT WILL BE SEEN IN A FOLLOW UP IN THE NEXT FEW WEEKS. INSTRUCTIONS WERE GIVEN, QUESTIONS WERE ANSWERED, AND THE PATIENT EXPRESSED UNDERSTANDING AND AGREES WITH THE PLAN. I, BENITA BRADSHAW, DOCUMENTED THE ABOVE INFORMATION ACTING A SCRIBE FOR DR. SR. I HAVE REVIEWED THE ABOVE DOCUMENT, WRITTEN BY BENITA BRADSHAW SCRIBE AND I VERIFY THAT IT IS ACCURATE. PROCEDURE CODES 01511 LUMBAR/SACRAL W/ IMAGING 6045F RADXPS IN END [id number] PXD DISPOSITION & COMMUNICATION FOLLOW UP 2 WEEKS ELECTRONICALLY SIGNED BY LEOPOLDO SR MD, MD ON 08/09/2019 AT 05:38 PM EDT DISCLAIMER : THIS IS A VISIT SUMMARY EXTRACTED FROM THE [employer] CHART. IT IS NOT A COPY OF THE [employer] PROGRESS NOTE. MTDEmir
== END ==
LOC: M PAIN 10:45
PROVIDERS: ATTEND Anesthesiology
DX: M51.16 Intervertebral disc disorders with radiculopathy, lumbar region (principal); M96.1 Postlaminectomy syndrome, not elsewhere classified; J45.909 Unspecified asthma, uncomplicated; G47.33 Obstructive sleep apnea (adult) (pediatric); G43.709 Chronic migraine without aura, not intractable, without status migrainosus; M81.0 Age-related osteoporosis without current pathological fracture; K21.9 Gastro-esophageal reflux disease without esophagitis; G47.00 Insomnia, unspecified; E66.9 Obesity, unspecified; D64.9 Anemia, unspecified; E53.8 Deficiency of other specified B group vitamins; R25.1 Tremor, unspecified; Z98.84 Bariatric surgery status; Z90.49 Acquired absence of other specified parts of digestive tract; Z88.5 Allergy status to narcotic agent; Z79.891 Long term (current) use of opiate analgesic; Z79.899 Other long term (current) drug therapy; Z68.38 Body mass index [BMI] 38.0-38.9, adult
CPT/HCPCS: 62323; J1030; Q9967

== ENCOUNTER → 2023-03-18 | Outpatient (REF) ==
[~2023-03-18] MED LIST changes: -IBUP200T45 PO; +IBUP200T46 PO; -ISOVUE-M 300 61% 15ML VIAL (Q9967) As Ordered ONE; -LIDOCAINE 1% SDV INJ 30 ML VIAL As Ordered ONE; -TRAZ-163 PO; +TRAZ-257 PO; -diazePAM 5 MG TAB As Ordered ONE; -diphenhydrAMINE 25 MG CAP As Ordered ONE; -methylPREDNISolone SUSP 40 MG/ML (DEPO-medrol) VIAL (J1030) As Ordered ONE; -oxyCODONE 5MG TAB As Ordered ONE
== END ==
LOC: M PLAIMG 10:20
PROVIDERS: ATTEND Internal Medicine
DX: M25.561 Pain in right knee (principal); M25.551 Pain in right hip; M25.552 Pain in left hip